=== PATIENT | male | born 1985 | race Caucasian/White ===

== ENCOUNTER 2020-06-24 10:17 | Outpatient (REF) | payer MEDICAID, SELFPAY ==
[2020-06-24 10:50] LABS: COVID-19 Test Negative (Negative); IDNOW Serial# 55D5AD1C
== END 2020-06-24 10:18 | disposition home or self-care (01) ==
LOC: HO.LAB 10:17
PROVIDERS: Visit Provider Internal Medicine
DX: Z20.822 Contact with and (suspected) exposure to COVID-19 (principal)
CPT/HCPCS: 36415; 87635; C9803

== ENCOUNTER 2020-12-16 17:35 | Emergency (ER) | payer MEDICAID, SELFPAY ==
--- NOTE | ~2020-12-16 | XR_ITS ---
EXAMINATION: XR ABDOMEN KUB CLINICAL INDICATION: Evaluate stool burden COMPARISON: None TECHNIQUE: AP view of the abdomen. FINDINGS: The bowel gas pattern is normal with no evidence of ileus or obstruction. A small to moderate stool burden is present with most stool in the right and transverse colon. No unusual soft tissue calcifications are noted. The bones are unremarkable. XR/XR KUB IMPRESSION: Unremarkable examination.
[2020-12-16 17:57] VITALS: BP 130/89; PULSE 88; RESP 18; TEMP 37.3; O2SAT 99; BMI 20.6
--- NOTE | 2020-12-16 17:58 | ED.GENADULT ---
HPI - General Adult General Chief complaint: Abdominal Pain Stated complaint: blood in stool,constipation Time Seen by Provider: 12/16/20 17:37 Related Data Allergies Allergy/AdvReac Type Severity Reaction Status Date / Time No Known Allergies Allergy Unverified 11/16/19 19:16 [No Known Allergies*] [facility] Social History Social History Advance Directives: No Advance Directives Information Provided: No Physical Exam Vital Signs: Vital Signs: Last Vital Signs Temp 99.2 F 12/16/20 17:57 Pulse 88 12/16/20 17:57 Resp 18 12/16/20 17:57 BP 130/89 12/16/20 17:57 Pulse Ox 99 12/16/20 17:57 Body Mass Index 20.6 Course Course Course Narrative: 1758-This is a rapid medical exam. 35 yo male here with constipation and rectal bleeding. Last BM 3 days ago. Left sided abdominal pain described as cramping. Drinking prune juice with continued symptoms. Will check KUB, labs. Deferred additional HPI, ROS and PE to primary provider. Discharge Plan Discharge Clinical Impression: Rectal bleeding Patient Disposition: Elopement Interventions: ED Discharge Assessment Last Done: 12/16/20 21:27 Discharge Date/Time: 12/16/20 21:38
== END 2020-12-16 21:38 | disposition left against medical advice (07) ==
LOC: HO.ED 21:37
PROVIDERS: Emergency Provider Emergency Medicine
DX: K92.1 Melena (principal); K59.00 Constipation, unspecified
CPT/HCPCS: 74018; 99283

== ENCOUNTER 2023-04-10 15:12 | Emergency (ER) | payer MEDICAID, SELFPAY ==
--- NOTE | 2023-04-10 | ECG_ITS ---
Test Reason : BLOODY STOOL Blood Pressure : / mmHG Vent. Rate : 061 BPM Atrial Rate : 061 BPM P-R Int : 148 ms QRS Dur : 096 ms QT Int : 400 ms P-R-T Axes : 043 021 014 degrees QTc Int : 402 ms Normal sinus rhythm Normal ECG No previous ECGs available Referred By: Generic ED Physician Electronically Signed By:SEBASTIEN VILLAGRAN
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
[2023-04-10 15:22] VITALS: BP 141/100; BP 146/94; PULSE 70; PULSE 82; RESP 18; TEMP 36.4; O2SAT 96; O2SAT 97; BMI 27.4
[2023-04-10 15:25] VITALS: PULSE 68
[2023-04-10 15:41] LABS: Basophils Percent Auto 0.5 % (0-2); Eosinophils Absolute Auto 0.2 X10*3/uL (0.0-0.4); Eosinophils Percent Auto 2.8 % (0-4); Hematocrit 44.3 % (42.0-52.0); Hemoglobin 15.1 g/dl (14.0-18.0); Imm Gran Abs Auto 0.02 X10*3/uL (0.00-0.03); Imm Gran Pct Auto 0.3 % (0.0-0.4); Lymphocytes Absolute Auto 2.2 X10*3/uL (1.2-4.9); Lymphocytes Percent Auto 28.9 % (20-40); MANUAL DIFF FLAG NO; Mean Corpuscular HGB Conc 34.1 g/dl (31.0-36.0); Mean Corpuscular Hemoglobin 28.8 pg (27.0-33.0); Mean Corpuscular Volume 84.4 fL (80.0-98.0); Mean Platelet Volume 10.5 fL (9.4-12.4); Monocytes Percent Auto 12.7 % (2-11); Neutrophils Absolute Auto 4.2 x10*3/uL (2.0-8.3); Neutrophils Percent Auto 54.8 % (45-73); Platelet Count 187 X10*3/uL (160-400); Red Blood Count 5.25 X10*6/uL (4.60-5.80); Red Cell Distribution Width 13.1 % (11.0-16.0); White Blood Count 7.6 X10*3/uL (4.8-10.8)
--- NOTE | 2023-04-10 15:48 | PC.NURSE ---
Patient reports seeing bright red blood in stool x 2 months and vomited bright red blood x 2 today. Report drinks heavily every other day of hard liquor. Reports uses cocaine with last use being last night. Reports 10/10 left lower quadrant abdominal pain that started last evening
[2023-04-10 16:06] LABS: Alanine Aminotransferase 32 U/L (0-40); Albumin Level 4.6 g/dL (3.5-5.0); Alkaline Phosphatase 82 U/L (39-117); Anion Gap 11 (12-20); Aspartate Amino Transferase 35 U/L (5-37); Bilirubin Direct 0.2 mg/dL (0.0-0.5); Bilirubin Total 0.6 mg/dL (0.0-1.0); Blood Urea Nitrogen 14 mg/dL (9-16); Calcium 9.4 mg/dL (8.4-10.2); Carbon Dioxide 25 mmol/L (22-29); Chloride 106 mmol/L (96-108); Creatinine Clr Calc Pharmacy 131.7; Estimated Glomerular Filt Rate > 60; Glucose Random 98 mg/dL (60-115); Lipase 44 U/L (8-78); Potassium 3.5 mmol/L (3.3-5.1); Sodium 138 mmol/L (135-145); Total Protein 7.8 g/dL (6.5-8.0)
[2023-04-10 16:07] LABS: Troponin-I High Sensitivity < 2.7 ng/L (<3.5-35.0)
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
[2023-04-10 16:53] LABS: C Reactive Protein 0.71 mg/dL (< or = 0.50)
[2023-04-10] MEDS: iohexoL 350 MG/ML 100 ML INFUS..BTL IV (16:54)
[2023-04-10] MEDS: droPERidol 5 MG/2 ML VIAL 1.25 MG IVPUSH (17:05)
[2023-04-10] MEDS: 0.9 % Sodium Chloride 1,000 ML 999 ML IV (17:05)
[2023-04-10] MEDS: Ketorolac Tromethamine 15 MG/ML VIAL 10 MG IVPUSH (17:05)
[2023-04-10 18:00] VITALS: BP 114/58; PULSE 63; RESP 18; TEMP 37; O2SAT 98
[2023-04-10] MEDS: cefTRIAXone sodium 2 GM in 0.9 % Sodium Chloride 50 ML IV (18:29)
[2023-04-10] MEDS: metroNIDAZOLE/NS 500 MG/100 ML PIGGYBACK 100 MG IV (18:42)
[2023-04-10 19:35] VITALS: BP 118/69; PULSE 58; RESP 12; TEMP 36.7; O2SAT 95
== END 2023-04-10 20:22 | disposition home or self-care (01) ==
PROVIDERS: Emergency Provider Emergency Medicine; PCP Internal Medicine
DX: K57.32 Diverticulitis of large intestine without perforation or abscess without bleeding (principal)
CPT/HCPCS: 36415; 74177; 80053; 82248; 83690; 84484; 85025; 86140; 93005; 96361; 96365; 96367; 96375; 99284; 99285; J0696; J1790; J1836; J1885; Q9967

== ENCOUNTER → 2023-04-10 15:56 | Outpatient (BNV) | payer MEDICAID, SELFPAY | PROVIDERS: Emergency Provider Emergency Medicine; PCP Internal Medicine; Visit Provider Internal Medicine | DX: K92.1 Melena (principal) | CPT/HCPCS: 93010 ==